=== PATIENT | female | born 1990 | race African-American/Black ===

== ENCOUNTER 2016-05-29 15:24 | Outpatient (CLI) | payer OTHER ==
[2013-07-10 18:38] VITALS: BP 155/81
--- NOTE | 2016-05-29 20:45 | Diagnostic Imaging Report ---
CARMEN KEY [facility] [address] [facility]ly [facility] [address] [address] Report Submission Date: May 29, 2016 3:57:13 PM DIRECTOR DIABETES Patient Study Name: GINGER PAULINO Date: May 29, 2016 3:30:52 PM DIRECTOR DIABETES Modality Type: CR Gender: F Description: LOWER EXTREMITY : 89 Institution: [facility] Physician: CARMEN KEY Left ankle 3 views Clinical history: Left ankle pain after injury 1 month ago No visible fracture, dislocation or bone destruction. No joint effusion. No soft tissue calcifications. Impression: Normal left ankle the head Electronically signed on May 29, 2016 3:57:13 PM DIRECTOR DIABETES by: Antwna Zhu Impression: Normal left ankle Addendum electronically signed by Antwan Zhu on May 29, 2016 3:57:45 PM DIRECTOR DIABETES MTDD
== END 2016-05-29 15:26 ==
LOC: RAD 15:24
PROVIDERS: ATTEND Physician Assistant
DX: S99.912A Unspecified injury of left ankle, initial encounter (principal); X58.XXXA Exposure to other specified factors, initial encounter; Y93.9 Activity, unspecified; Y99.9 Unspecified external cause status
CPT/HCPCS: 73610

== ENCOUNTER 2016-12-19 14:30 | Emergency (ER) | payer OTHER ==
[2016-12-19 14:49] VITALS: BP 138/75
--- NOTE | 2016-12-19 14:50 | ED Physician Documentation ---
General Adult - HISTORIAN Historian: patient - HPI Stated Complaint: reddened right arm Chief Complaint: Abscess Onset: days ago (1) Timing: worse Severity: moderate Modifying Factors: when she moves the pain is increased Further Comments: no Last known Well Date: 12/18/16 Last Known Well Time: 08:00 Last known Well Code/Unknown Code: Unknown - ROS CONST: denies: fever, recent illness EYES/ENT: denies: problems with vision, sore throat CVS/RESP: denies: chest pain, shortness of breath GI/: nausea. denies: abdominal pain, vomiting MS/SKIN/LYMPH: other (area on right arm ) - PAST HX Past History: other (htn - controlled ) Other History: none Surgeries/Procedures: other (nasal and D&C) Immunizations: referred to PCP - SOCIAL HX Smoking History: non-smoker Alcohol Use: none Drug Use: none - FAMILY HX Family History: No - VITAL SIGNS Vital Signs: Vital Signs Temp Pulse Resp BP Pulse Ox 98.2 F 99 H 20 138/75 98 12/19/16 14:44 12/19/16 14:44 12/19/16 14:44 12/19/16 14:44 12/19/16 14:44 - REVIEWED ASSESSMENTS Nursing Assessment Reviewed: Yes Vitals Reviewed: Yes <Sofia Mora - Last Filed: 12/19/16 15:06> - VITAL SIGNS Vital Signs: Vital Signs Temp Pulse Resp BP Pulse Ox 98.2 F 99 H 20 138/75 98 12/19/16 15:08 12/19/16 15:08 12/19/16 15:08 12/19/16 15:08 12/19/16 15:08 <Antwan Kim - Last Filed: 12/19/16 15:25> - PAST HX Allergies/Adverse Reactions: Allergies Allergy/AdvReac Type Severity Reaction Status Date / Time lavender (Lavandula Allergy Verified 12/19/16 14:50 angustifolia) Home Medications: Ambulatory Orders Medication Instructions Recorded Sulfamethoxazole/Trimethoprim 1 each PO BID #20 tab 12/19/16 [Bactrim Ds] Progress - Progress Progress: I have review documentation of assessment and plan and agree with it as outlined. Patient advised that even though abx have been started she could still devleop an abscess that may need to be drained. <Antwan Kim - Last Filed: 12/19/16 15:25> General Adult Physical Exam - PHYSICAL EXAM GENERAL APPEARANCE: no distress NECK: normal inspection RESPIRATORY: no resp distress, chest non-tender, breath sounds normal CVS: reg rate & rhythm, heart sounds normal, equal pulses, no murmur ABDOMEN: soft, normal bowel sounds BACK: normal inspection SKIN: other (10 cm area on right upper arm no drainge red / painful to touch ) NEURO: oriented X3, CN's nml as tested, motor nml <Sofia Mora - Last Filed: 12/19/16 15:06> - PHYSICAL EXAM SKIN: other (10 cm area on right upper arm no drainge red / painful to touch, has an area of induration to the proximal portion about 3cm in diameter, no abscess formation at this time.) <JulioAntwan - Last Filed: 12/19/16 15:25> Discharge Decision to Admit: NO Date of Decison to Admit: 12/19/16 Decision Time: 15:00 <Sofia Mora - Last Filed: 12/19/16 15:06> <JulioAntwan - Last Filed: 12/19/16 15:25> Clincal Impression: Abscess Prescriptions: Sulfamethoxazole/Trimethoprim [Bactrim Ds] 1 each PO BID #20 tab Referrals: Michelle Mathur FNP [Primary Care Provider] - 2 Days Condition: Stable Disposition: 01 HOME, SELF-CARE
== END 2016-12-19 15:08 | disposition home or self-care (01) ==
LOC: ED 14:30
DX: L02.413 Cutaneous abscess of right upper limb (principal)
CPT/HCPCS: 99283

== ENCOUNTER 2016-12-23 16:52 | Outpatient (CLI) | payer OTHER | END 2016-12-23 16:53 | LOC: LABRHC 16:52 | PROVIDERS: ATTEND Physician Assistant | DX: L02.91 Cutaneous abscess, unspecified (principal) | CPT/HCPCS: 87070 ==